=== PATIENT | female | born 1990 | race Caucasian/White ===

== ENCOUNTER → 2016-08-04 | Outpatient (CLI) | payer BC | END | disposition short-term general hospital (02) | LOC: CLOBGYN 09:53 | DX: R87.613 High grade squamous intraepithelial lesion on cytologic smear of cervix (HGSIL) (principal) ==

== ENCOUNTER → 2016-08-19 | Outpatient (CLI) | payer OTHER | END | disposition short-term general hospital (02) | LOC: CLOBGYN 08:52 | DX: R87.610 Atypical squamous cells of undetermined significance on cytologic smear of cervix (ASC-US) (principal); N87.9 Dysplasia of cervix uteri, unspecified ==